=== PATIENT | male | born 1985 | race Caucasian/White ===

== ENCOUNTER → 2017-04-19 | Outpatient (CLI) | payer OTHER ==
[~2017-04-19] MED LIST: ASPCH81X PO; RBTUDL5 PO
--- NOTE | 2017-04-19 09:40 | DIAGNOSTIC IMAGING REPORT ---
LEFT SHOULDER 3 VIEWS HISTORY: LEFT SHOULDER PAIN COMPARISON: None. FINDINGS: There is no fracture or dislocation. Soft tissues are unremarkable. The left clavicle is intact. IMPRESSION: No fracture or dislocation within the left shoulder. Electronically signed by: Miguel Vu M.D. 04/19/2017 9:38 AM Dictated Date/Time: 04/19/2017 9:37 AM
== END | disposition home or self-care (01) ==
LOC: C.RDSM 13:06
PROVIDERS: ATTEND Physician Assistant
DX: M25.512 Pain in left shoulder (principal)

== ENCOUNTER → 2017-05-30 | Outpatient (CLI) | payer OTHER ==
--- NOTE | 2017-05-30 14:05 | DIAGNOSTIC IMAGING REPORT ---
CERVICAL SPINE 4 OR 5 VIEWS CLINICAL HISTORY: NECK PAIN COMPARISON STUDY: No previous studies for comparison. FINDINGS: The prevertebral soft tissues are normal. No fractures or subluxations are visualized. The bony neural foramen appear patent bilaterally. No destructive lesions are evident IMPRESSION: Normal conventional radiographic study. Electronically signed by: Akbar Diaz M.D. 05/30/2017 2:03 PM Dictated Date/Time: 05/30/2017 2:02 PM
== END | disposition home or self-care (01) ==
LOC: C.RDSM 10:11
PROVIDERS: ATTEND Physician Assistant
DX: R52 Pain, unspecified (principal)

== ENCOUNTER → 2017-06-07 | Outpatient (CLI) | payer OTHER ==
--- NOTE | 2017-06-07 13:16 | DIAGNOSTIC IMAGING REPORT ---
MRI OF THE CERVICAL SPINE WITHOUT IV CONTRAST CLINICAL HISTORY: Left cervical radiculopathy. Left arm pain. COMPARISON STUDY: Radiographs of the cervical spine dated 05/30/2017. TECHNIQUE: MRI of the cervical spine is performed utilizing various T1 and T2-weighted sequences in the axial and sagittal planes. IV contrast was not administered for this examination. FINDINGS: Cervical spine: Vertebral body height and alignment are maintained throughout the cervical spine. Normal marrow signal intensity is preserved throughout the visualized osseous structures. There is mild straightening of the cervical lordosis. The atlantodental articulation appears intact. The spinous processes are maintained. No destructive bony lesion is seen. Intervertebral discs: Normal in height and signal intensity. Spinal cord: Normal in morphology and signal intensity. C2-C3: Unremarkable. C3-C4: There is predominantly uncovertebral arthropathy which causes mild to moderate left and minimal right neural foraminal stenosis. The central canal is patent. C4-C5: There is a tiny posterior disc osteophyte complex eccentric to the left. The central canal is patent. There is minimal left-sided neural foraminal stenosis secondary to predominantly uncovertebral arthropathy. C5-C6: There is a posterior disc osteophyte complex eccentric to the left which abuts the ventral cord. This also obliterates the left neural foramen which is severely narrowed. The right neural foramen is clear. C6-C7: There is minimal posterior disc osteophyte complex. The central canal is patent and the neural foramina are clear. C7-T1: Unremarkable. Soft tissues: The prevertebral and paraspinous soft tissues are normal in appearance. Brain parenchyma: Partially visualized brain parenchyma at the skull base is normal in appearance. Mild mucosal thickening is seen in the right maxillary antrum. IMPRESSION: 1. 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 2. Mild spondylotic changes at additional levels as above. See discussion for level by level analysis. 3. No bony abnormality is identified. Dictated: 06/07/2017 11:29 AM Transcribed: 06/07/2017 1:15 PM Michael Electronically signed by: Jamar Lerner M.D. 06/07/2017 1:22 PM Dictated Date/Time: 06/07/2017 11:29 AM
== END | disposition home or self-care (01) ==
LOC: C.MRI 10:17
PROVIDERS: ATTEND Physician Assistant
DX: M54.12 Radiculopathy, cervical region (principal); M25.78 Osteophyte, vertebrae

== ENCOUNTER → 2017-08-22 | Outpatient (CLI) | payer OTHER ==
[2017-08-22 12:25] LABS: ALBUMIN 4.2 gm/dl (3.4-5.0); ALT/SGPT 26 U/L (12-78); BLOOD UREA NITROGEN 18 mg/dl (7-18); CALCIUM 8.9 mg/dl (8.5-10.1); CARBON DIOXIDE 28 mmol/L (21-32); CREATININE 1.05 mg/dl (0.60-1.40); GLUCOSE 90 mg/dl (70-99); POTASSIUM 3.7 mmol/L (3.5-5.1); SODIUM 139 mmol/L (136-145)
[2017-08-22 12:27] LABS: ALKALINE PHOSPHATASE 34 U/L (45-117); AST/SGOT 15 U/L (15-37); TOTAL PROTEIN 7.2 gm/dl (6.4-8.2)
== END | disposition home or self-care (01) ==
LOC: C.LABBFT 07:46
PROVIDERS: ATTEND Internal Medicine
DX: Z00.00 Encounter for general adult medical examination without abnormal findings (principal)